=== PATIENT | male | born 1995 | race Two or more races ===

== ENCOUNTER 2017-01-10 22:23 | Emergency (ER) | payer SELFPAY ==
[~2017-01-10] VITALS: Ht 177.8 cm; Wt 72.8 kg
[2017-01-10 22:29] VITALS: BP 142/83
[2017-01-10] MEDS ORDERED: IBUPROFEN 200 MG TABLET PO ONE (23:30)
[2017-01-10] MEDS ORDERED: IBUPROFEN 200 MG TABLET ONE (23:30)
== END 2017-01-11 00:30 | disposition home or self-care (01) ==
LOC: ED 23:59
DX: S49.91XA Unspecified injury of right shoulder and upper arm, initial encounter (principal); S09.90XA Unspecified injury of head, initial encounter; S79.911A Unspecified injury of right hip, initial encounter; F17.200 Nicotine dependence, unspecified, uncomplicated; V49.9XXA Car occupant (driver) (passenger) injured in unspecified traffic accident, initial encounter; Y93.89 Activity, other specified; Y92.89 Other specified places as the place of occurrence of the external cause; Y99.8 Other external cause status
CPT/HCPCS: 70450; 99284